=== PATIENT | female | born 1980 | race African-American/Black ===

== ENCOUNTER → 2018-05-29 | Outpatient (CLI) | payer SELFPAY ==
--- NOTE | 2018-05-29 15:51 | RADIOLOGY REPORT (SQ) ---
EXAM DESCRIPTION: U/S [id number] TRNABD 1GES W/ODOP COMPLETED DATE/TIME: 05/29/2018 3:30 pm REASON FOR STUDY: ENCOUNTER FOR SUPRVSN OF NORMAL ,FIRST TR Z34.81 ENCOUNTER FOR SUPRVSN O F NORMAL , FIRST TRIM COMPARISON: None. TECHNIQUE: Transvaginal static and realtime grayscale images acquired of the pelvis. Additional vanessa cted spectral and color Doppler images recorded. All images stored on PACs. CG: Not available. CLINICAL DATES: LMP 04/02/2018. 8 weeks 1 day LIMITATIONS: None. FINDINGS: FETUS: Single Living intrauterine . ULTRASOUND EGA: 6 weeks ULTRASOUND TEETEE: 01/22/2019 EFW: Not applicable less than 20 weeks. CRL: 0.32 cm heart motion is present. Right could not be measured. SURVEY: Too early to assess. AMNIOTIC FLUID: Adequate amount. PLACENTA: Not yet developed due to early gestation. SUBCHORIONIC BLEED: Yes SIZE OF BLEED: 2.6 cm UTERUS: No masses. No anomalies. CERVICAL LENGTH: 3.3 cm. Closed. RIGHT ADNEXA: Ovary not seen. No adnexal free fluid. No adnexal masses. LEFT ADNEXA: Normal ovary with normal vascular flow. 3.6 x 1.9 x 1.7 cm. No adnexal free fluid. No adnexal masses. FREE FLUID: None. OTHER: No other significant finding. IMPRESSION: Early, live intrauterine gestation of 6 weeks 0 days. heart motion was noted but heart rate could not be measured. Follow-up as clinically indicated. Trimester of : First - 0 to 13 weeks. TECHNICAL DOCUMENTATION: JOB ID: [id number]- All Rights Reserved rev-08/09 Reading location - IP/workstation name: [email or web address]
== END ==
LOC: EDSTATUS 14:00 → RAD 14:14
PROVIDERS: ATTEND Midwife
DX: Z34.81 Encounter for supervision of other normal pregnancy, first trimester (principal)
CPT/HCPCS: 76801

== ENCOUNTER 2018-06-05 23:45 | Emergency (ER) | payer MEDICAID ==
--- NOTE | 2018-06-06 02:23 | RADIOLOGY REPORT (SQ) ---
CLINICAL HISTORY: , bleeding COMPARISON: None. TECHNIQUE: US TRANSVAGINAL, US LESS THAN 14 WEEKS on 06/06/2018 1:31 AM CDT FINDINGS: Uterus measures 10.1 cm and contains a gestational sac. crown-rump length is 4.5 mm corresponding to six weeks one day. heart tones are not seen at this time. Ovaries are unremarkable. The cervix is closed measuring 3.4 cm. IMPRESSION: Early intrauterine gestation with a pole measuring six weeks one day. Cardiac motion is not yet seen but this may be due to early gestational age. Recommend follow-up in 2-3 days.
--- NOTE | 2018-06-06 04:51 | ER Document Report ---
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 She said she was seen to [facility] office and had an ultrasound which showed an IUP with a heart rate. She says she has small amount of cramping through lower abdomen and into her back. No dysuria. No fevers. No vomiting. She is taking vitamins. She is unsure what her blood type is. TRAVEL OUTSIDE OF THE [place] IN LAST 30 DAYS: No - Related Data Allergies/Adverse Reactions: No Known Allergies Allergy (Unverified 06/05/18 23:52) Past Medical History - Social History Smoking Status: Never Smoker Frequency of alcohol use: None Drug Abuse: None Family History: Reviewed & Not Pertinent Review of Systems - Review of Systems Notes: My Normal Review Basic REVIEW OF SYSTEMS: CONSTITUTIONAL : Denies fever, chills, or sweats. Denies recent illness. RESPIRATORY: Denies cough, cold, or chest congestion. Denies shortness of breath, difficulty breathing, or wheezing. GASTROINTESTINAL: Lower abdominal pain. Denies nausea, vomiting, or diarrhea. GENITOURINARY: Denies difficulty urinating, painful urination, burning, frequency, or blood in urine. FEMALE GENITOURINARY: Some vaginal bleeding. Currently . MUSCULOSKELETAL: Denies neck or back pain or joint pain or swelling. SKIN: Denies rash or skin lesions. NEUROLOGICAL: Denies altered mental status or loss of consciousness. Denies headache. Denies weakness or paralysis or loss of use of either side. Denies problems with gait or speech. Denies sensory or motor loss. ALL OTHER SYSTEMS REVIEWED AND NEGATIVE. Physical Exam - Vital signs Vitals: Temp Pulse Resp BP Pulse Ox 98.6 F 74 16 128/82 H 100 06/05/18 23:57 06/05/18 23:57 06/05/18 23:57 06/05/18 23:57 06/05/18 23:57 - Notes Notes: General Appearance: Well nourished, alert, cooperative, no acute distress, no obvious discomfort. Well-appearing. Vitals: reviewed, See vital signs table. Eyes: PERRL, EOMI, Conjuctiva clear Lungs: No wheezing, No rales, No rhonci, No accessory muscle use, good air exchange bilaterally. Heart: Normal rate, Regular rythm, No murmur, no rub Abdomen: Normal BS, soft, No rigidity, No reducible abdominal tenderness to palpation. Extremities: no edema. Skin: warm, dry, appropriate color, no rash Neuro: speech clear, oriented x 3, normal affect, responds appropriately to questions. Course - Re-evaluation Re-evalutation: 06/06/18 06:47 Patient's ultrasound shows pole but no heart rate. Is a little bit concerning being the patient just had a recent ultrasound with a grossly the heart rate. I informed her this does not absolutely mean that she is having a miscarriage. She had a small amount of bleeding earlier. Her hCG level is appropriate in consideration with her for long she is on the findings on ultrasound. Informed her that I did a repeat hCG level in 3 days to see if it is increasing appropriately. Informed her she can go to her doctor on Saturday for this or return to ER. I did not send urine as she has no dysuria no urinary symptoms. At this time for the patient safe to be discharged home. I encouraged her return to ER immediately if she has heavy vaginal bleeding, fevers, increasing pain, or she feels unwell. Patient agrees with plan will be discharged home. Dictation of this chart was performed using voice recognition software; therefore, there may be some unintended grammatical errors. - Vital Signs Vital signs: Temp Pulse Resp BP Pulse Ox 98.6 F 74 16 128/82 H 100 06/05/18 23:57 06/05/18 23:57 06/05/18 23:57 06/05/18 23:57 06/05/18 23:57 - Laboratory Result Diagrams: 06/06/18 04:40 Laboratory results interpreted by me: 06/06/18 06/06/18 04:40 04:40 RBC 3.70 L Hgb 11.2 L Hct 33.4 L Beta HCG, Quant 86441.00 H Discharge - Discharge Clinical Impression: Vaginal bleeding during Condition: Good Disposition: HOME, SELF-CARE Additional Instructions: As discussed with you it is not clear if you could be potentially having a miscarriage or if this just could be benign bleeding in early . The way we are able to tell this is by repeating your hormone level (HCG level) on Saturday. You can return to the ER or follow-up with your OB doctor on Saturday to have this performed. Please avoid sexual activity. Please avoid heavy lifting. Please return to ER immediately if you have heavy bleeding, severe pain, or feel unwell.
[2018-06-06 05:15] LABS: ABSOLUTE EOSINOPHILS # (AUTO) 0.2 10^3/uL (0.0-0.6); ABSOLUTE LYMPHOCYTES (AUTO) 2.7 10^3/uL (0.5-4.7); ABSOLUTE MONOCYTES (AUTO) 0.5 10^3/uL (0.1-1.4); ABSOLUTE NEUT (AUTO) 5.8 10^3/uL (1.7-8.2); BASOPHILS % (AUTO) 0.3 % (0-2); EOSINOPHILS % (AUTO) 2.3 % (0-6); HEMATOCRIT 33.4 % (36.0-47.0); HEMOGLOBIN 11.2 g/dL (12.0-15.5); LYMPHOCYTES % (AUTO) 29.5 % (13-45); MEAN CORPUSCULAR HEMOGLOBIN 30.4 pg (27.0-33.4); MEAN CORPUSCULAR HGB CONC 33.7 g/dL (32.0-36.0); MEAN CORPUSCULAR VOLUME 90 fl (80-97); MONOCYTES % (AUTO) 5.5 % (3-13); PLATELET COUNT 208 10^3/uL (150-450); RED CELL DISTRIBUTION WIDTH 13.1 % (11.5-14.0); SEGMENTED NEUTROPHILS % (AUTO) 62.4 % (42-78); TOTAL CELLS COUNTED % (AUTO) 100 %; WHITE BLOOD COUNT 9.3 10^3/uL (4.0-10.5)
[2018-06-06 07:10] VITALS: BP 129/81
== END 2018-06-06 07:19 | disposition home or self-care (01) ==
LOC: ER 23:45
DX: O20.9 Hemorrhage in early pregnancy, unspecified (principal); R10.30 Lower abdominal pain, unspecified; M54.5 Low back pain; Z3A.01 Less than 8 weeks gestation of pregnancy
CPT/HCPCS: 36415; 76817; 84702; 85025; 86900; 86901; 93976; 99284

== ENCOUNTER 2018-06-13 15:16 | Emergency (ER) | payer MEDICAID ==
--- NOTE | 2018-06-13 16:55 | ER Document Report ---
ED Medical Screen (RME) - General Chief Complaint: Vaginal Bleeding Stated Complaint: VAGINAL BLEEDING Time Seen by Provider: 06/13/18 16:26 Notes: 37-year-old female patient who is A2 with post miscarriages occurring at 6.5 months. She reports onset today of bright red bleeding. She is not looked to tell if there are clots or not. There is cramping associated with this. She was seen here on 06/06/2018 when she had an ultrasound showing a 6-week 1 day intrauterine without heart tones. I have greeted and performed a rapid initial assessment of this patient. A comprehensive ED assessment and evaluation of the patient, analysis of test results and completion of the medical decision making process will be conducted by additional ED providers. TRAVEL OUTSIDE OF THE [place] IN LAST 30 DAYS: No - Related Data Allergies/Adverse Reactions: No Known Allergies Allergy (Verified 06/13/18 15:47) Past Medical History - Social History Chew tobacco use (# tins/day): No Frequency of alcohol use: None Drug Abuse: None Renal/ Medical History: Denies: Hx Peritoneal Dialysis Physical Exam - Vital signs Vitals: Temp Pulse Resp BP Pulse Ox 98.6 F 81 16 137/77 H 100 06/13/18 15:49 06/13/18 15:49 06/13/18 15:49 06/13/18 15:49 06/13/18 15:49 Course - Vital Signs Vital signs: Temp Pulse Resp BP Pulse Ox 98.6 F 81 16 137/77 H 100 06/13/18 15:49 06/13/18 15:49 06/13/18 15:49 06/13/18 15:49 06/13/18 15:49
--- NOTE | 2018-06-13 17:57 | RADIOLOGY REPORT (SQ) ---
EXAM DESCRIPTION: U/S OB TRANSVAGINAL W/O DOP COMPLETED DATE/TIME: 06/13/2018 5:41 pm REASON FOR STUDY: 7wks, BRB w/ mike A2 COMPARISON: 05/29/2018 TECHNIQUE: Transvaginal static and realtime grayscale images acquired of the pelvis. Additional vanessa cted spectral and color Doppler images recorded. All images stored on PACs. bHCG: Not available CLINICAL DATES: LMP 04/12/2018. 10 weeks 2 days. LIMITATIONS: None. FINDINGS: FETUS: Single Living intrauterine . ULTRASOUND EGA: 6 weeks 3 days ULTRASOUND TEETEE: 02/02/2019 EFW: Not applicable less than 20 weeks. CRL: 1.6 cm. FHR: 83 beats per minute. Heart motion is not well seen. SURVEY: Too early to assess. AMNIOTIC FLUID: Adequate amount. PLACENTA: Not yet developed due to early gestation. SUBCHORIONIC BLEED: No SIZE OF BLEED: Not applicable. UTERUS: No masses or anomalies. 10.2 x 5.9 x 6.3 cm. CERVICAL LENGTH: 2.8 cm. Closed. RIGHT ADNEXA: Normal ovary with normal vascular flow. 3.5 x 2 x 3.3 cm. No adnexal free fluid. No adnexal masses. LEFT ADNEXA: Normal ovary with normal vascular flow. 4.1 x 1.8 x 2.5 cm. No adnexal free fluid. No adnexal masses. FREE FLUID: None. OTHER: No other significant finding. IMPRESSION: LIVING INTRAUTERINE . EGA 6 weeks 3 days. Trimester of : First - 0 to 13 weeks. TECHNICAL DOCUMENTATION: JOB ID: [id number]- All Rights Reserved rev Reading location - IP/workstation name: [email or web address]
--- NOTE | 2018-06-13 18:39 | ER Document Report ---
ED General - General Chief Complaint: Vaginal Bleeding Stated Complaint: VAGINAL BLEEDING Time Seen by Provider: 06/13/18 16:26 Notes: 37-year-old female patient who is A2 presents with concerns of lower abdominal cramping with associated onset today of bright red bleeding. She was seen here on 06/06/2018 when she had an ultrasound showing a 6-week 1 day intrauterine without heart tones. Extremities described as mild, intermittent, gradual in onset. Nothing improves or worsens that discomfort. States bleeding is similar to quality during her normal menstrual period. She has not seen her OB regarding today's concerns. Denies nausea, vomiting, fever or constitutional symptoms. History of similar symptoms in the past with miscarriages. TRAVEL OUTSIDE OF THE [place] IN LAST 30 DAYS: No - Related Data Allergies/Adverse Reactions: No Known Allergies Allergy (Verified 06/13/18 15:47) Past Medical History - General Information source: Patient - Social History Smoking Status: Current Every Day Smoker Chew tobacco use (# tins/day): No Frequency of alcohol use: None Drug Abuse: None Lives with: Family Family History: Reviewed & Not Pertinent Patient has suicidal ideation: No Patient has homicidal ideation: No Renal/ Medical History: Denies: Hx Peritoneal Dialysis Review of Systems - Review of Systems Notes: Constitutional: Negative for fever. HENT: Negative for sore throat. Eyes: Negative for visual changes. Cardiovascular: Negative for chest pain. Respiratory: Negative for shortness of breath. Gastrointestinal: Positive for lower abdominal cramping Genitourinary: Positive for vaginal bleeding Musculoskeletal: Negative for back pain. Skin: Negative for rash. Neurological: Negative for headaches, weakness or numbness. 10 point ROS negative except as marked above and in HPI. Physical Exam - Vital signs Vitals: Temp Pulse Resp BP Pulse Ox 98.6 F 81 16 137/77 H 100 06/13/18 15:49 06/13/18 15:49 06/13/18 15:49 06/13/18 15:49 06/13/18 15:49 Interpretation: Normal Notes: PHYSICAL EXAMINATION: GENERAL: Well-appearing, well-nourished and in no acute distress. HEAD: Atraumatic, normocephalic. EYES: Pupils equal round and reactive to light, extraocular movements intact, sclera anicteric, conjunctiva are normal. ENT: nares patent, oropharynx clear without exudates. Moist mucous membranes. NECK: Normal range of motion, supple without lymphadenopathy LUNGS: Breath sounds clear to auscultation bilaterally and equal. No wheezes rales or rhonchi. HEART: Regular rate and rhythm without murmurs ABDOMEN: Soft, nontender, normoactive bowel sounds. No guarding, no rebound. No masses appreciated. EXTREMITIES: Normal range of motion, no pitting or edema. No cyanosis. NEUROLOGICAL: No focal neurological deficits. Moves all extremities spontaneously and on command. PSYCH: Normal mood, normal affect. SKIN: Warm, Dry, normal turgor, no rashes or lesions noted. Course - Re-evaluation Re-evalutation: 06/13/18 18:37 Patient presents with a mild amount of vaginal bleeding in the setting of a first trimester . Ultrasound does demonstrate an intrauterine with active heart rate. No active bleeding at time of presentation. She is Rh positive. Patient's abdominal exam is otherwise benign without any focal tenderness. I do not suspect an acute appendicitis, pyelonephritis, cystitis, or bowel obstruction. At this time will discharge with return precautions and follow-up recommendations. Verbal discharge instructions given a the bedside and opportunity for questions given. Medication warnings reviewed. Patient is in agreement with this plan and has verbalized understanding of return precautions and the need for primary care follow-up in the next 24-72 hours. - Vital Signs Vital signs: Temp Pulse Resp BP Pulse Ox 98.1 F 64 16 130/72 H 100 06/13/18 18:57 06/13/18 18:57 06/13/18 18:57 06/13/18 18:57 06/13/18 18:57 - Laboratory Laboratory results interpreted by me: 06/13/18 17:03 Beta HCG, Quant 9940.00 H - Diagnostic Test Radiology reviewed: Reports reviewed Discharge - Discharge Clinical Impression: Vaginal bleeding during , First trimester , Threatened miscarriage Condition: Good Disposition: HOME, SELF-CARE Additional Instructions: Your ultrasound today shows a living intrauterine . Please follow closely with your primary care [facility]IST. Please return if you develop severe abdominal pain, bleeding that goes through more than 2 pads for more than 2 hours, pass out, or have any other symptoms that are concerning to you. Please follow-up closely with your OBGYN regarding todays visit.
[2018-06-13 18:57] VITALS: BP 130/72
== END 2018-06-13 18:57 | disposition home or self-care (01) ==
LOC: ER 15:16
DX: O20.0 Threatened abortion (principal); O26.891 Other specified pregnancy related conditions, first trimester; R10.30 Lower abdominal pain, unspecified; O99.331 Smoking (tobacco) complicating pregnancy, first trimester; F17.200 Nicotine dependence, unspecified, uncomplicated; Z3A.01 Less than 8 weeks gestation of pregnancy; Z87.59 Personal history of other complications of pregnancy, childbirth and the puerperium
CPT/HCPCS: 36415; 76817; 84702; 99284

== ENCOUNTER 2018-06-17 22:34 | Emergency (ER) | payer MEDICAID ==
[2018-06-18 00:18] LABS: APPEARANCE,URINE CLOUDY; BILIRUBIN,URINE NEGATIVE (NEGATIVE); COLOR,URINE AMBER; GLUCOSE, URINE 150 mg/dL (NEGATIVE); KETONES,URINE NEGATIVE (NEGATIVE); LEUKOCYTE ESTERASE,URINE NEGATIVE (NEGATIVE); NITRITE,URINE NEGATIVE (NEGATIVE); PROTEIN,URINE NEGATIVE (NEGATIVE); URINE SPECIFIC GRAVITY 1.024; UROBILINOGEN,URINE NEGATIVE mg/dL (<2.0)
[2018-06-18 00:28] LABS: ABSOLUTE BASOPHILS # (AUTO) 0.1 10^3/uL (0.0-0.2); ABSOLUTE EOSINOPHILS # (AUTO) 0.2 10^3/uL (0.0-0.6); ABSOLUTE LYMPHOCYTES (AUTO) 2.5 10^3/uL (0.5-4.7); ABSOLUTE MONOCYTES (AUTO) 0.5 10^3/uL (0.1-1.4); ABSOLUTE NEUT (AUTO) 6.1 10^3/uL (1.7-8.2); BASOPHILS % (AUTO) 0.6 % (0-2); EOSINOPHILS % (AUTO) 2.5 % (0-6); HEMATOCRIT 35.3 % (36.0-47.0); HEMOGLOBIN 11.9 g/dL (12.0-15.5); LYMPHOCYTES % (AUTO) 26.2 % (13-45); MEAN CORPUSCULAR HGB CONC 33.9 g/dL (32.0-36.0); MEAN CORPUSCULAR VOLUME 89 fl (80-97); MONOCYTES % (AUTO) 5.7 % (3-13); PLATELET COUNT 288 10^3/uL (150-450); RED BLOOD COUNT 3.98 10^6/uL (3.72-5.28); RED CELL DISTRIBUTION WIDTH 13.2 % (11.5-14.0); TOTAL CELLS COUNTED % (AUTO) 100 %; WHITE BLOOD COUNT 9.4 10^3/uL (4.0-10.5)
--- NOTE | 2018-06-18 02:12 | RADIOLOGY REPORT (SQ) ---
EXAM DESCRIPTION: US TRANSVAGINAL, US TRANSVAGINAL COMPLETED DATE/TME: 06/18/2018 00:21 (accession [id number]), 06/13/2018 16:53 (accession [id number]) CLINICAL HISTORY: 37 years Female, vaginal bleeding in prgnancy COMPARISON: 2 days prior. TECHNIQUE: Transvaginal. LIMITATIONS: None. FINDINGS: No cardiac activity. Intrauterine fetus measures 0.37 cm (prior: 0.72-cm, 2 days prior) in crown-rump length which if viable correspond with a gestational age of six weeks and zero days. 2.6 cm right ovarian 3.3 cm left ovary are unremarkable. IMPRESSION: No cardiac activity at this time despite cardiac activity on previous exam two days ago and decreased crown-rump length is 0.37-cm at this time suggestive of demise. Recommend 48 to 72 hours laboratory/sonographic confirmation. Note: [place]-rump length greater than 7 mm without cardiac activity is considered diagnostic for failed first trimester . At this time crown-rump length is 0.37 cm, albeit decreased compared with 2 days ago..
--- NOTE | 2018-06-18 02:52 | ER Document Report ---
ED General - General Chief Complaint: Vag Bleeding, +preg <12wks Stated Complaint: /BLEEDING Time Seen by Provider: 06/18/18 00:14 Notes: Patient is a 37-year-old female who is with 2 previous miscarriages and currently is approximately 8-10 weeks . This is her third visit to the ED and proximal me 1 week due to intermittent vaginal bleeding. She says she has some mild crampy abdominal pain. No fevers. No vomiting. Her initial visit she was seen by me at that time her quantitative hCG levels 11,000 ultrasound cannot see heart rate. She came back a few days later and her hCG level dropped to just over 9000 but they were able to see heart rate at that time. She says she has an appoint with an OB doctor on Saturday. She has no other complaints at this time. TRAVEL OUTSIDE OF THE [place] IN LAST 30 DAYS: No - Related Data Allergies/Adverse Reactions: No Known Allergies Allergy (Verified 06/13/18 15:47) Past Medical History - Social History Smoking Status: Unknown if Ever Smoked Frequency of alcohol use: None Drug Abuse: None Family History: Reviewed & Not Pertinent Patient has suicidal ideation: No Patient has homicidal ideation: No Renal/ Medical History: Denies: Hx Peritoneal Dialysis Review of Systems - Review of Systems Notes: My Normal Review Basic REVIEW OF SYSTEMS: CONSTITUTIONAL : Denies fever, chills, or sweats. Denies recent illness. RESPIRATORY: Denies cough, cold, or chest congestion. Denies shortness of breath, difficulty breathing, or wheezing. GASTROINTESTINAL: Denies abdominal pain. Denies nausea, vomiting, or diarrhea. Female : Vaginal bleeding in . MUSCULOSKELETAL: Denies neck or back pain or joint pain or swelling. SKIN: Denies rash or skin lesions. NEUROLOGICAL: Denies altered mental status or loss of consciousness. ALL OTHER SYSTEMS REVIEWED AND NEGATIVE. Physical Exam - Vital signs Vitals: Temp Pulse Resp BP Pulse Ox 98.7 F 84 18 140/75 H 100 06/17/18 22:44 06/17/18 22:44 06/17/18 22:44 06/17/18 22:44 06/17/18 22:44 - Notes Notes: General Appearance: Well nourished, alert, cooperative, no acute distress, no obvious discomfort. Well appearing. Vitals: reviewed, See vital signs table. Eyes: PERRL, EOMI, Conjuctiva clear Lungs: No wheezing, No rales, No rhonci, No accessory muscle use, good air exchange bilaterally. Heart: Normal rate, Regular rythm, No murmur, no rub Abdomen: Normal BS, soft, No rigidity, No abdominal tenderness, No guarding, no rebound, no abdominal masses, no organomegaly Extremities: good pulses in all extremities, no edema. Skin: warm, dry, appropriate color, no rash Neuro: speech clear, oriented x 3, normal affect, responds appropriately to questions. Course - Re-evaluation Re-evalutation: 06/18/18 03:09 Patient's hCG level is decreasing and her ultrasound is consistent with probable demise. I did explain this to the patient informed her that is likely that she will have a miscarriage. I will print off her labs and her ultrasound give him to her to take to her appointment on Saturday. I encouraged patient to avoid sexual activity and follow-up closely with her doctor on Saturday as scheduled. I informed her to return to ER immediately if she has fevers, vomiting, worsening pain, heavy bleeding, or if she feels unwell. Patient agrees with plan and will be discharged home. Dictation of this chart was performed using voice recognition software; therefore, there may be some unintended grammatical errors. - Vital Signs Vital signs: Temp Pulse Resp BP Pulse Ox 98.7 F 84 18 140/75 H 100 06/17/18 22:44 06/17/18 22:44 06/17/18 22:44 06/17/18 22:44 06/17/18 22:44 - Laboratory Result Diagrams: 06/17/18 23:50 Laboratory results interpreted by me: 06/17/18 06/17/18 06/17/18 23:50 23:50 23:55 Hgb 11.9 L Hct 35.3 L Beta HCG, Quant 9174.50 H Urine Glucose (UA) 150 H Urine Blood SMALL H Urine Ascorbic Acid 40 H Discharge - Discharge Clinical Impression: Vaginal bleeding during Condition: Good Disposition: HOME, SELF-CARE Additional Instructions: Your ultrasound results are indicative of what is likely to be a miscarriage. Your hormone level continues to decrease signifying that most likely you are going to have a miscarriage. No sexual activity until cleared by OB doctor. Rest and no heavy lifting until cleared by your OB doctor. Follow-up with your doctor at your appointment on Saturday. Please take your laboratory results and your ultrasound report with you to your appointment. Return to the ER immediately if you have severe pain, heavy bleeding, fevers, or feel unwell.
[2018-06-18 03:32] VITALS: BP 132/86
== END 2018-06-18 03:32 | disposition home or self-care (01) ==
LOC: ER 22:34
DX: O20.9 Hemorrhage in early pregnancy, unspecified (principal)
CPT/HCPCS: 36415; 76817; 81001; 84702; 85025; 86900; 86901; 93976; 99284

== ENCOUNTER 2018-06-19 07:24 | Emergency (ER) | payer MEDICAID ==
[2018-06-19 07:40] VITALS: BP 126/79
--- NOTE | 2018-06-19 08:00 | ER Document Report ---
ED General - General Chief Complaint: Vaginal Bleeding Stated Complaint: VAGINAL BLEEDING Time Seen by Provider: 06/19/18 07:55 Primary Care Provider: CARL RAGLAND DO [ACTIVE STAFF] - Follow up as needed TRAVEL OUTSIDE OF THE [place] IN LAST 30 DAYS: No - HPI Patient complains to provider of: Vaginal bleeding Notes: Patient is a 37-year-old female who is with 2 previous miscarriages and currently is approximately 8-10 weeks . This is her fourth visit to the ED and proximal me 1 week due to intermittent vaginal bleeding. Patient coming in today because of continued bleeding. Patient says she is going approximately 3-2 pads in 1 hour. Patient denies any syncopal episodes dizziness lightheadedness denies any nausea vomiting denies any abdominal pain. Patient does state that she has an appointment to follow-up with the [facility] at [facility] tomorrow. Patient otherwise looks to be in no obvious distress. A brief review of the patient's past medical records available in [facility] was performed Patient laboratory studies and recent ultrasound were reviewed. Patient has specific decline in her beta hCG this week. Last ultrasound here showed no to cardiac activity consistent with demise. Patient does state that the process of undergoing a miscarriage was not explained to her fully and seems to be somewhat confused as the general expectations - Related Data Allergies/Adverse Reactions: No Known Allergies Allergy (Verified 06/19/18 07:26) Past Medical History - Social History Smoking Status: Unknown if Ever Smoked Family History: Reviewed & Not Pertinent Renal/ Medical History: Denies: Hx Peritoneal Dialysis Review of Systems - Review of Systems Constitutional: No symptoms reported EENT: No symptoms reported Cardiovascular: No symptoms reported Respiratory: No symptoms reported Gastrointestinal: No symptoms reported Genitourinary: No symptoms reported Female Genitourinary: Vaginal bleeding Musculoskeletal: No symptoms reported Skin: No symptoms reported Hematologic/Lymphatic: No symptoms reported Neurological/Psychological: No symptoms reported -: Yes All other systems reviewed and negative Physical Exam - Vital signs Vitals: Temp Pulse Resp BP Pulse Ox 97.7 F 70 16 126/79 H 100 06/19/18 07:39 06/19/18 07:39 06/19/18 07:39 06/19/18 07:39 06/19/18 07:39 Interpretation: Normal - General General appearance: Appears well, Alert - HEENT Head: Normocephalic, Atraumatic Eyes: Normal Pupils: PERRL - Respiratory Respiratory status: No respiratory distress Chest status: Nontender Breath sounds: Normal Chest palpation: Normal - Cardiovascular Rhythm: Regular Heart sounds: Normal auscultation Murmur: No - Abdominal Inspection: Normal Distension: No distension Bowel sounds: Normal Tenderness: Nontender Organomegaly: No organomegaly - Back Back: Normal, Nontender - Extremities General upper extremity: Normal inspection, Nontender, Normal color, Normal ROM, Normal temperature General lower extremity: Normal inspection, Nontender, Normal color, Normal ROM, Normal temperature, Normal weight bearing. No: Brittany's sign - Neurological Neuro grossly intact: Yes Cognition: Normal Orientation: AAOx4 [place] Coma Scale Eye Opening: Spontaneous [place] Coma Scale Verbal: Oriented [place] Coma Scale Motor: Obeys Commands Annette Coma Scale Total: 15 Speech: Normal Motor strength normal: LUE, RUE, LLE, RLE Sensory: Normal - Psychological Associated symptoms: Normal affect, Normal mood - Skin Skin Temperature: Warm Skin Moisture: Dry Skin Color: Normal Course - Re-evaluation Re-evalutation: 06/19/18 07:57 Educated patient about process of the miscarriage and need to follow-up as outpatient at the [facility] clinic. At this time patient's physical examination is normal. Patient has normal vital signs. Patient has noted symptoms of anemia or need for blood transfusion. I did recommend for the patient to start taking iron tablets to have out with preventing possible anemia. Patient agrees with this plan patient agrees to follow-up with the [employer] [facility] [facility] tomorrow - Vital Signs Vital signs: Temp Pulse Resp BP Pulse Ox 97.7 F 70 16 126/79 H 100 06/19/18 07:39 06/19/18 07:39 06/19/18 07:39 06/19/18 07:39 06/19/18 07:39 Discharge - Discharge Clinical Impression: Miscarriage Condition: Good Disposition: HOME, SELF-CARE Instructions: Miscarriage ([facility]) Additional Instructions: Your laboratory results and ultrasound from the previous visit are consistent with a miscarriage. You can expect heavy bleeding consistent with a heavier menstrual cycle. Please follow-up with the women's health care clinic tomorrow at your scheduled appointment. If you experience lightheadedness dizziness passout or develop a fever temperature greater than 101 please return to the ER immediately I would recommend taking iron supplements either [id number] or as prescribed to help prevent anemia. Prescriptions: Ferrous Sulfate [Iron] 325 mg PO DAILY #30 tablet Referrals: CARL RAGLAND DO [ACTIVE STAFF] - Follow up as needed
== END 2018-06-19 08:15 | disposition home or self-care (01) ==
LOC: ER 07:24
DX: O03.9 Complete or unspecified spontaneous abortion without complication (principal)
CPT/HCPCS: 99283

== ENCOUNTER 2018-07-10 07:09 | Day surgery (SDC) | payer MEDICAID ==
[2018-07-10 07:52] LABS: APPEARANCE,URINE SLIGHTLY-CLOUDY; BILIRUBIN,URINE NEGATIVE (NEGATIVE); COLOR,URINE YELLOW; GLUCOSE, URINE 50 mg/dL (NEGATIVE); KETONES,URINE NEGATIVE (NEGATIVE); LEUKOCYTE ESTERASE,URINE TRACE (NEGATIVE); NITRITE,URINE NEGATIVE (NEGATIVE); PROTEIN,URINE NEGATIVE (NEGATIVE); URINE SPECIFIC GRAVITY 1.025
[2018-07-10] MEDS ORDERED: ALBUTEROL SULFATE 0.083% NEB 2.5 MG/3 ML AMPUL NEB ONE (08:08)
[2018-07-10 08:15] LABS: ABSOLUTE BASOPHILS # (AUTO) 0.1 10^3/uL (0.0-0.2); ABSOLUTE EOSINOPHILS # (AUTO) 0.2 10^3/uL (0.0-0.6); ABSOLUTE LYMPHOCYTES (AUTO) 2.6 10^3/uL (0.5-4.7); ABSOLUTE MONOCYTES (AUTO) 0.4 10^3/uL (0.1-1.4); ABSOLUTE NEUT (AUTO) 3.7 10^3/uL (1.7-8.2); BASOPHILS % (AUTO) 0.8 % (0-2); EOSINOPHILS % (AUTO) 3.2 % (0-6); HEMATOCRIT 33.1 % (36.0-47.0); HEMOGLOBIN 11.1 g/dL (12.0-15.5); LYMPHOCYTES % (AUTO) 37.2 % (13-45); MEAN CORPUSCULAR HEMOGLOBIN 30.2 pg (27.0-33.4); MEAN CORPUSCULAR HGB CONC 33.5 g/dL (32.0-36.0); MEAN CORPUSCULAR VOLUME 90 fl (80-97); MONOCYTES % (AUTO) 5.7 % (3-13); PLATELET COUNT 243 10^3/uL (150-450); RED BLOOD COUNT 3.68 10^6/uL (3.72-5.28); RED CELL DISTRIBUTION WIDTH 13.7 % (11.5-14.0); SEGMENTED NEUTROPHILS % (AUTO) 53.1 % (42-78); TOTAL CELLS COUNTED % (AUTO) 100 %
[2018-07-10] MEDS ORDERED: ONDANSETRON HCL INJ/PF 4 MG/2 ML SDV ONE (09:18)
[2018-07-10] MEDS ORDERED: MIDAZOLAM 2 MG/2 ML INJ ONE (09:18)
[2018-07-10] MEDS ORDERED: FENTANYL CITRATE INJ/PF 100 MCG/2 ML AMPUL ONE (09:18)
[2018-07-10] MEDS ORDERED: PROPOFOL INJ 200 MG/20 ML VIAL IV ONE (09:18)
[2018-07-10] MEDS ORDERED: MORPHINE SULFATE 10 MG/ML INJ IV PRN (09:53)
[2018-07-10] MEDS ORDERED: DIPHENHYDRAMINE HCL 50 MG/ML VIAL IV PRN (09:53)
[2018-07-10] MEDS ORDERED: MEPERIDINE HCL/PF INJ 25 MG/1 ML DISP.SYRIN IV PRN (09:53)
[2018-07-10] MEDS ORDERED: PROMETHAZINE HCL INJ 25 MG/1 ML VIAL IV PRN (09:53)
[2018-07-10] MEDS ORDERED: FENTANYL CITRATE INJ/PF 100 MCG/2 ML AMPUL IV PRN ×3 (09:53)
--- NOTE | 2018-07-10 10:29 | OPERATIVE REPORT E ---
Operative Report NAME: RAMONA OH : 1980 AGE: 37Y DATE OF SURGERY: 07/10/2018 ROOM: PREOPERATIVE DIAGNOSIS: RETAINED PRODUCTS OF CONCEPTION. POSTOPERATIVE DIAGNOSIS: RETAINED PRODUCTS OF CONCEPTION. PROCEDURE: Suction dilation and curettage. SURGEON: ISAIAH LOZA M.D. ANESTHESIA: Epidural. ANESTHESIA PROVIDER Annette Berger MD with LMAC. ESTIMATED BLOOD LOSS: 100 mL. FINDINGS: Uterus sounded to 12 cm with small amounts of products of conception consistent with her ultrasound findings in the office. COMPLICATIONS: None. SPECIMENS REMOVED Products of conception. PROCEDURE IN DETAIL: The patient was taken to the operating room, prepared and draped in normal sterile fashion in a dorsal lithotomy position. Under sterile condition an in and out catheterization was performed for approximately 5 mL of clear urine. The sterile speculum was placed in the vagina. The cervix was grasped on the anterior lip with a single-tooth tenaculum and prepped with Betadine. An 8 mm curved suction curette was introduced without difficulty and suction curettage was carefully performed. The curettage was abandoned when adequate products of conception were obtained and a sharp curettage was performed with a Kevorkian curette and noted to have 360 degrees of good grit within the uterus. Instruments were then removed. Sponge, lap, and needle counts were correct x2, and the patient was taken to recovery in stable condition. DICTATING PHYSICIAN: ISAIAH LOZA M.D. [id number] PHY#: [id number] ID: [id number] JOB#: [id number] ACCT: [id number] cc:ISAIAH LOZA M.D. >
[2018-07-10] MEDS ORDERED: MORPHINE SULFATE 10 MG/ML INJ IM PRN (10:32)
[2018-07-10] MEDS ORDERED: IBUPROFEN 800 MG TABLET PO PRN (10:33)
[2018-07-10] MEDS ORDERED: OXYCODONE-ACETAMINOPHEN 5-325 MG TABLET PO PRN ×2 (10:33)
[2018-07-10 12:19] VITALS: BP 134/74
== END 2018-07-10 11:45 | disposition home or self-care (01) ==
LOC: OROUT 07:09
PROVIDERS: ATTEND Obstetrics & Gynecology
DX: O02.1 Missed abortion (principal); F17.210 Nicotine dependence, cigarettes, uncomplicated; D64.9 Anemia, unspecified; Z79.899 Other long term (current) drug therapy
CPT/HCPCS: 1965; 36415; 81001; 85025; 88305; 94640; J2250; J2405; J2704; J3010